=== PATIENT | female | born 1980 | race Two or more races ===

== ENCOUNTER 2017-11-26 13:34 | Emergency (ER) | payer MEDICAID ==
[~2017-11-26] VITALS: Ht 147.3 cm; Wt 68.5 kg
[2017-11-26] MEDS ORDERED: GABA300C PO (13:51)
[2017-11-26] MEDS ORDERED: ONDANSETRON IV *ER 4 MG/2 ML VIAL IV ONE ×2 (14:00→14:45)
[2017-11-26] MEDS ORDERED: MORPHINE SULFATE 4 MG/1 ML DISP.SYRIN IV ONE ×2 (14:00→14:45)
[2017-11-26] MEDS ORDERED: ONDANSETRON 4 MG/2 ML VIAL ONE ×2 (14:02→14:35)
[2017-11-26] MEDS ORDERED: MORPHINE SULFATE 4 MG/1 ML DISP.SYRIN ONE ×2 (14:02→14:35)
--- NOTE | 2017-11-26 15:02 | NUR ---
IV removed. Catheter intact and site benign. Pressure and 4x4 gauze applied to site. No bleeding noted.
--- NOTE | 2017-11-26 15:03 | NUR ---
Patient discharged to home in stable conditon. Written and verbal after care instructions given. Patient verbalizes understanding of instructions.
[2017-11-26 15:06] VITALS: BP 133/78
== END 2017-11-26 15:08 | disposition home or self-care (01) ==
LOC: ER 13:34
DX: N80.9 Endometriosis, unspecified (principal); Z90.49 Acquired absence of other specified parts of digestive tract
CPT/HCPCS: 96374; 96375; 96376; 99284; A4663; J2270 ×2; J2405 ×2

== ENCOUNTER 2018-10-03 20:19 | Emergency (ER) | payer MEDICAID ==
[~2018-10-03] VITALS: Ht 157.5 cm; Wt 77.1 kg
[~2018-10-03 20:19] MED LIST: GABA300C PO
[2018-10-03] MEDS ORDERED: DICYCLOMINE HCL LIQ 10 MG/5 ML UDC ONE (20:42)
[2018-10-03] MEDS ORDERED: MAG HYDROX/AL HYDROX/SIMETH 30 ML LIQUID UDC ONE (20:43)
[2018-10-03] MEDS ORDERED: DICYCLOMINE HCL LIQ 10 MG/5 ML UDC PO ONE (20:45)
[2018-10-03] MEDS ORDERED: MAG HYDROX/AL HYDROX/SIMETH 30 ML LIQUID UDC PO ONE (20:45)
[2018-10-03] MEDS ORDERED: IV NORMAL SALINE 1000 ML BAG IV ONE (21:00)
[2018-10-03] MEDS ORDERED: ONDANSETRON 4 MG/2 ML VIAL IV ONE ×2 (21:00→21:30)
[2018-10-03] MEDS ORDERED: HYDROMORPHONE 1 MG/1 ML DISP.SYRIN IV ONE ×2 (21:00→21:30)
[2018-10-03] MEDS ORDERED: PANTOPRAZOLE SODIUM 40 MG VIAL IV ONE (21:00)
--- NOTE | 2018-10-03 21:00 | NUR ---
Pt's left to drive the other car home, will be back after.
[2018-10-03] MEDS ORDERED: HYDROMORPHONE 1 MG/1 ML DISP.SYRIN ONE (21:05)
[2018-10-03] MEDS ORDERED: ONDANSETRON 4 MG/2 ML VIAL ONE ×2 (21:06→21:34)
[2018-10-03] MEDS ORDERED: PANTOPRAZOLE SODIUM 40 MG VIAL ONE (21:06)
[2018-10-03] MEDS ORDERED: HYDROMORPHONE 2 MG/1 ML DISP.SYRIN ONE (21:34)
[2018-10-03] MEDS ORDERED: diphenhydrAMINE 50 MG/1 ML VIAL IV ONE (22:00)
[2018-10-03] MEDS ORDERED: diphenhydrAMINE 50 MG/1 ML VIAL ONE (22:03)
--- NOTE | 2018-10-03 22:58 | NUR ---
Patient discharged to home in stable conditon. Written and verbal after care instructions given. Patient verbalizes understanding of instructions. Pt ambulated out of ER with steady gait, no acute signs of distress, VSS, all belongings taken, IV site discontinued.
[2018-10-03 22:59] VITALS: BP 153/100
== END 2018-10-03 22:59 | disposition home or self-care (01) ==
LOC: ER 20:19
DX: K21.0 Gastro-esophageal reflux disease with esophagitis (principal); Z90.49 Acquired absence of other specified parts of digestive tract; Z90.710 Acquired absence of both cervix and uterus; Z79.899 Other long term (current) drug therapy
CPT/HCPCS: 96374; 96375; 99283; C9113; J1170 ×2; J1200; J2405 ×2; A4663; J7030